=== PATIENT | female | born 1990 | race Two or more races ===

== ENCOUNTER 2024-08-31 21:24 | Emergency (ER) | payer MEDICARE, MEDICAID, SELFPAY ==
[2024-08-31 21:34] VITALS: PULSE 107; O2SAT 98; BMI 25.7
[2024-08-31 21:55] VITALS: BP 148/91; PULSE 97; RESP 18; TEMP 36.7; O2SAT 99
--- NOTE | 2024-08-31 21:56 | PC.NURSE ---
PT STATED TO ME SHE NO LONGER WANTS TO BE SEEN. PROVIDER AND TRIAGE NURSE MADE AWARE.
== END 2024-08-31 22:04 | disposition left against medical advice (07) ==
LOC: SERX 22:06
PROVIDERS: Emergency Provider Emergency Medicine
DX: Z53.21 Procedure and treatment not carried out due to patient leaving prior to being seen by health care provider (principal)
CPT/HCPCS: 99281

== ENCOUNTER 2025-04-27 08:31 | Emergency (ER) | payer MEDICARE, MEDICAID, SELFPAY ==
[2025-04-27 08:32] VITALS: BMI 25.9
--- NOTE | 2025-04-27 08:50 | XR_ITS ---
Examination: Foot, left, 3 views Technique: AP, oblique, lateral views foot, 3 views Date and time of exam: April 27, 2025, 0847 hours INDICATIONS: Injury to the foot 4 days ago with foot pain and swelling, patient is a diabetic FINDINGS: Moderate osteopenia Soft tissue vascular calcification No acute fracture No dislocation IMPRESSION: No acute fracture. No cortical bone destruction
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
[2025-04-27 08:52] VITALS: BP 176/97; PULSE 89; RESP 18; TEMP 36.9; O2SAT 99
== END 2025-04-27 09:33 | disposition home or self-care (01) ==
LOC: SERX 09:31
PROVIDERS: Emergency Provider Family Medicine
DX: S93.602A Unspecified sprain of left foot, initial encounter (principal); W20.8XXA Other cause of strike by thrown, projected or falling object, initial encounter
CPT/HCPCS: 73630; 99282